=== PATIENT | female | born 1995 ===

== ENCOUNTER 2018-07-01 19:12 | Emergency (ER) | payer BC, OTHER ==
[2018-07-01 20:07] VITALS: RESP 18; TEMP 98.1; O2SAT 100
[2018-07-01 20:54] LABS: BASOPHILS % (AUTO) 1 % (0-3); EOSINOPHILS % (AUTO) 2 % (0-9); HEMATOCRIT 40 % (35-47); HEMOGLOBIN 13.1 gm/dl (12.0-15.5); MEAN CORPUSCULAR HEMOGLOBIN 27.3 pg (27.0-32.0); MEAN CORPUSCULAR HGB CONC 32.4 gm/dl (32.0-36.0); MEAN CORPUSCULAR VOLUME 84 fL (81-99); MONOCYTES % (AUTO) 9.1 % (0-12); NEUTROPHILS % (AUTO) 48.9 % (37-80)
[2018-07-01 21:08] LABS: ALBUMIN 3.7 gm/dl (3.4-5.0); BILIRUBIN,TOTAL 0.1 mg/dl (0.2-1.0); CALCIUM 8.8 mg/dl (8.5-10.1); CARBON DIOXIDE 29.1 mEq/L (21-32); CREATININE 0.65 mg/dl (0.60-1.00); TOTAL PROTEIN 6.9 gm/dl (6.4-8.2)
[2018-07-01] MEDS ORDERED: DIPHENHYDRAMINE 25 MG CAP PO ONE ×2 (21:48→21:51)
[2018-07-01] MEDS ORDERED: DIPHENHYDRAMINE 25 MG CAP ONE (21:49)
[2018-07-02 00:03] VITALS: BP 119/68; PULSE 70
== END 2018-07-01 22:25 | disposition home or self-care (01) ==
LOC: ED 19:12
DX: S62.614D Displaced fracture of proximal phalanx of right ring finger, subsequent encounter for fracture with routine healing (principal); S62.612D Displaced fracture of proximal phalanx of right middle finger, subsequent encounter for fracture with routine healing; S62.626D Displaced fracture of middle phalanx of right little finger, subsequent encounter for fracture with routine healing; S62.616D Displaced fracture of proximal phalanx of right little finger, subsequent encounter for fracture with routine healing
CPT/HCPCS: 29125; 36415; 73130; 80053; 85025; 99283; A9270-GY